=== PATIENT | male | born 1955 | race Caucasian/White ===

== ENCOUNTER → 2020-07-23 15:34 | Outpatient (CLI) | payer BC, SELFPAY ==
--- NOTE | ~2020-07-23 | XR_ITS ---
XR cervical spine 4-5V DATE: 07/23/2020 15:49 INDICATION: Cervical radiculopathy TECHNIQUE: AP, open-mouth, odontoid, lateral and swimmer views COMPARISON: None FINDINGS: C1 and C2 appear normally aligned and the odontoid process appears intact. There is mild loss of interspace height at C3-4. There is approximately 2 mm anterolisthesis at C5-6. There is moderate degenerative disc disease at C6-7. Otherwise no fracture or dislocation or locked facet or prevertebral soft tissue swelling. IMPRESSION: Mild to moderate cervical spondylosis 2 mm anterolisthesis at C5-6 Reviewed, dictated and finalized at location A.
== END ==
PROVIDERS: PCP Family Medicine; Visit Provider Physician Assistant
DX: M47.22 Other spondylosis with radiculopathy, cervical region (principal)
CPT/HCPCS: 72050

== ENCOUNTER 2023-12-14 18:00 | Emergency (ER) | payer BC, SELFPAY ==
--- NOTE | 2023-12-14 18:04 | ED.URI ---
HPI - URI/Sore Throat General Chief Complaint: Upper Respiratory Infection Stated Complaint: Congestion Time Seen by Provider: 12/14/23 18:09 Source: patient, RN notes reviewed and old records reviewed Mode of arrival: ambulatory Limitations: no limitations History of Present Illness HPI Narrative: 68-year-old male presents to the [facility] with approximately 1 week sore throat, postnasal drip,head congestion and runny nose. Related Data Allergies Allergy/AdvReac Type Severity Reaction Status Date / Time Penicillins Allergy Unknown Unknown Verified 12/14/23 18:05 Review of Systems Review of Systems: All systems reviewed & are unremarkable except as noted in HPI and below Constitutional: Constitutional: Reports no additional constitutional complaints Eyes: Eyes: Reports no additional eye complaints ENT: Reports as per HPI Cardiovascular: Cardiovascular: Reports no additional cardiovascular complaints, Denies chest pain and Denies dyspnea Respiratory: Respiratory: Reports no additional respiratory complaints, Denies chest congestion, Denies cough and Denies dyspnea Gastrointestinal: Gastrointestinal: Reports no additional gastrointestinal complaints, Denies abdominal pain, Denies nausea and Denies vomiting Musculoskeletal: Musculoskeletal: Reports no additional musculoskeletal complaints Integumentary/Breasts: Skin/Breast: Reports system reviewed and no additional complaints, except as docu Neurologic: Reports system reviewed and no additional complaints, except as documented Psychiatric: Psychiatric: Reports no additional psychiatric complaints Allergic/Immunologic: Allergic/Immunologic: Reports no additional allergic/immunologic complaints PMFSH Past Medical History Medical History Family history of prostate cancer Family History Family History Unknown Malignant neoplasm of prostate Social History Social History Smoking status: Never smoker Alcohol intake: current Substance use: never Comments At the time of my signature, I reviewed and agree with the nursing past medical, surgical, social, and family history. There is no relevant family history pertinent to the patient complaint. Exam Const: General: cooperative, healthy appearing, comfortable, no acute distress, well developed, alert and well nourished Nutritional Appearance: well nourished Orientation/consciousness: patient oriented x3 Limitations: no limitations HENMT: Head: normal to inspection Ears: hearing grossly normal bilaterally, external ears normal, TM's normal bilaterally, EAC's normal, mastoids normal and no periauricular adenopathy Face/Nose/Sinus: Normal external nose present, Normal nares present, Normal nasal mucous membranes and turbinates present, normal facial exam and face symmetric Face and sinus: normal facial exam and face symmetric Mouth: Yes Normal oral and palatal mucosa present, Yes lip normal and Yes tongue normal Throat: uvula midline, posterior oropharynx abnormal cobblestoning; no edema, no erythema, no exudates and no lacerations, postnasal drainage and no uvular edema Eyes: General: appearance normal, both eyes and all related structures Alignment and Position: alignment normal Periorbital: periorbital findings normal Pupils: Equal, round and reactive pupils present EOM: EOMs intact bilaterally Neck: Neck: normal visual inspection, full ROM, no lymphadenopathy and no meningeal signs Chest: Chest palpation & inspection: normal inspection of the chest Resp: Effort & Inspection: normal respiratory effort and able to speak in complete sentences Auscultation: clear to auscultation bilaterally, no crackles, no rales, no rhonchi and no wheezes Cardio: Rate: regular rate Rhythm: regular rhythm Skin: General skin exam: normal color and no rashes or
[2023-12-14 18:08] VITALS: BP 133/84; PULSE 80; RESP 16; TEMP 37; O2SAT 97
== END 2023-12-14 18:27 | disposition home or self-care (01) ==
PROVIDERS: Emergency Provider Nurse Practitioner; PCP Family Medicine
DX: J06.9 Acute upper respiratory infection, unspecified (principal); R09.82 Postnasal drip
CPT/HCPCS: 99213; G0463

== ENCOUNTER 2024-06-04 16:00 | Outpatient (CLI) | payer BC, SELFPAY ==
--- NOTE | ~2024-06-04 | XR_ITS ---
EXAM: XR_CERV2-3V_CR DATE: 06/04/2024 16:09 HISTORY: M54.2 - Cervicalgia . COMPARISON: 07/23/2020. FINDINGS: Craniocervical association and atlantoaxial joint are aligned. Moderate degenerative parada e at the atlantodental interval. No prevertebral soft tissue swelling. 2 mm retrolisthesis at C2-3 an d C6-7. 2 mm anterolisthesis at C4-5 and C5-6. Vertebral body heights are maintained. Normal disc spa geovanni. Mild disc space narrowing at C3-4. Moderate disc space narrowing and marginal osteophytosis at C 6-7. Multilevel moderate facet hypertrophy and sclerosis. IMPRESSION: Multilevel grade 1 listheses, detailed above. Multilevel cervical degenerative disc disea se, moderate at C6-7. Multilevel moderate cervical facet arthropathy. Reviewed, dictated and finalized at location K. CLERK IMPRESSION: Multilevel grade 1 listheses, detailed above. Multilevel cervical d egenerative disc disease, moderate at C6-7. Multilevel moderate cervical facet arthropathy.
== END 2024-06-04 16:01 | disposition home or self-care (01) ==
LOC: MICIMG 16:02
PROVIDERS: PCP Family Medicine; Visit Provider Student in an Organized Health Care Education/Training Program
DX: M43.12 Spondylolisthesis, cervical region (principal); M50.323 Other cervical disc degeneration at C6-C7 level; M47.892 Other spondylosis, cervical region
CPT/HCPCS: 72040

== ENCOUNTER 2024-09-17 01:27 | Day surgery (SDC) | payer BC, SELFPAY ==
[2024-09-05 15:24] VITALS: BMI 29.4
--- OUTSIDE RECORDS SUMMARY | 2024-09-17 01:29 | XMS_ITS | Clinical Summary ---
Author Organization [facility] Address [address] [place] [address] Care Team Providers Care Security Associate Name Role Phone Unavailable Primary Care Provider Unavailabl e Source Comments [facility],non-owned Affiliates and Associated Physician Practices is amultiple site organization consisting of ambulatory clinics and hospital sitesin [place], [place], [place] and [place]. This disclosure is being madepursuant to the Care Everywhere program and may not contain all information available regarding this patient. Last updated 17.[facility] Allergies Active Allergy Reactions Criticality Noted Date Comments Penicillins Other High 01/27/2020 unknown Encounters Date Type Department Care Team Description 06/18/2024 Telephone [facility] Pain Care [address] [place] [address] Pedro Bustillos MD Appointment from Last 3 Months Immunizations Immunization Administration Dates Next Due INFLUENZA VACCINE, HIGH-DOSE , QUADR. (FLUZONE HIGH-DOSE QUADRIVALENT; 65Y+), 0.7 ML (HD-IIV4) 01/27/2020 Social History Tobacco Use Types Packs/Day Years Used Date Smoking Tobacco: Never Assessed Sex and Gender Information Value Date Recorded Sex Assigned at Not on file Legal Sex Male 3:26 PM CDT Gender Identity Not on file Sexual Orientation Not on file Plan of Treatment Health Maintenance Due Date Last Done Comments COLOGUARD (AGES 45-75) - COL ON CA SCREENING 1955 COLON MONITORING 1955 COLONOSCOPY - COLON CA SCREENING 1955 CT COLONOGRAPHY - COLON CA SCREENING 1955 Colorectal Cancer Screening 1955 FIT - COLON CA SCREENING 1955 FLEX SIG - COLON CA SCREENING 1955 LIPID TESTING 1955 HEPATITIS C SCREENING 01/09/1973 DTAP/TDAP/TD VACCINES (1 - Tdap) 1974 PNEUMOCOCCAL VACCINE 50+ (1 of 1 - PCV) 2005 ZOSTER VACCINE (1 of 2) 2005 COVID-19 VACCINE (1 - 2023-2 5 season) 2023 DEPRESSION SCREENING 04/09/2024 INFLUENZA VACCINE (Season Ended) 2024 01/27/20 20 Respiratory Syncytial Virus (RSV) Vaccine Pt: or over 60 yrs (1 - 1-dose 75+ series) 2030 HEPATITIS B VACCINE Aged Out No longe r eligible based on patient's age to complete this topic HIB VACCINE Aged Out No longer eligi ble based on patient's age to complete this topic HPV VACCINE Aged Out No longer eligi ble based on patient's age to complete this topic MENINGOCOCCAL (Group B) VACC INE SHARED DECISION-MAKING Aged Out No longer eligibl e based on patient's age to complete this topic MENINGOCOCCAL GROUPS A/C/Y/W VACCINE Aged Out No longer eligible b ased on patient's age to complete this topic Insurance [place]
--- OUTSIDE RECORDS SUMMARY | 2024-09-17 01:29 | XMS_ITS | CONTINUITY OF CARE DOCUMENT ---
Author Name connerselvin chi Address Unknown Organization [facility] Address [address] [place] [address] Phone [phone] Care Team Providers Care Wood Last Maker Name Role Phone Vinny HOWARD, Mariel Unavailable INSURANCE PROVIDERS Payer name Policy type / Coverage type [place] red democrat ID [facility] [employer] insurance company [id number]
--- OUTSIDE RECORDS SUMMARY | 2024-09-17 01:29 | XMS_ITS | Clinical Summary ---
Author Organization [address] Address [address] [place] [id number] Care Team Providers Care Gear Design Engineer Name Role Phone Ariadne Strickland MD Primary Care Provider [phone] Allergies Active Allergy Reactions Criticality Noted Date Comments Penicillins Other (See comments) Low 05/10/2024 Unknown Medications benzonatate (TESSALON) 100 mg capsuleIndicati ons:Cough Take 1 capsule (100 mg total) by mouth 3 (three) times a day as needed for cough 42 capsule 05/10/2024 Active Active Problems No known active problems Social History Tobacco Use Types Packs/Day Years Used Date Smoking Tobacco: Never Assessed Sex and Gender Information Value Date Recorded Sex Assigned at Not on file Legal Sex Male 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 Gender Identity Not on file Sexual Orientation Not on file Last Filed Vital Signs Vital Sign Reading Time Taken Comments Blood Pressure 126/68 05/10/2024 3:23 PM FRAMING MILL SUPERVISOR Pulse 82 05/10/2024 3:23 PM FRAMING MILL SUPERVISOR Temperature 36.8 C (98.3 F) 05/10/2024 3:23 PM FRAMING MILL SUPERVISOR Respiratory Rate 20 05/10/2024 3:23 PM FRAMING MILL SUPERVISOR Oxygen Saturation 98% 05/10/2024 3:23 PM FRAMING MILL SUPERVISOR Inhaled Oxygen Concentration - - Weight 90.7 kg (200 lb) 05/10/2024 3:23 PM FRAMING MILL SUPERVISOR Height - - Body Mass Index - - Plan of Treatment Health Maintenance Due Date Last Done Comments Colon Cancer Screening-Colonoscopy 1955 Depression Screening 1955 Fall Risk Assessment 1955 Hepatitis C Screening 1955 Prostate Cancer Screening-PSA 1955 Hepatitis B Screening 1973 Pneumococcal vaccine 65+ (1 of 1 - PCV) 2005 Zoster Vaccine (2 of 3) 01/31/2016 12/06/2015 Abdominal Aortic Aneurysm (A AA) Screen 01/15/2020 Well Visit 65+ 01/15/2020 Covid-19 Vaccine (4 - 2023-2 5 season) 2023 03/17/2021, 06/11/2020, 05/14/2020 Influenza Vaccine (Season Ended) 2024 01/02/2022, 01/27/2020, 03/13/2016, Additional history exists DTaP/Tdap/Td Vaccine (2 - Td or Tdap) 09/12/2025 09/13/2015 Insurance [facility] CHOICE OOS Care Teams Gear Design Engineer Relationship Specialty Start Date End Date Ariadne Strickland MD [address] [place] [address] PCP - General Family Medicine 05/10/24
--- OUTSIDE RECORDS SUMMARY | 2024-09-17 01:29 | XMS_ITS | Referral Summary ---
Author Organization [address] Address [address] [place] [id number] Care Team Providers Care Old Testament Professor Name Role Phone Ariadne Strickland MD Primary Care Provider [phone] Allergies Active Allergy Reactions Criticality Noted Date [...] on file Legal Sex Male 10:50 AM WASTEWATER PLANT OPERATOR Gender Identity Not on file Sexual Orientation Not on file Last Filed Vital Signs Vital Sign Reading Time Taken Comments Blood Pressure 126/68 05/10/2024 3:23 PM WASTEWATER PLANT OPERATOR Pulse 82 05/10/2024 3:23 PM WASTEWATER PLANT OPERATOR Temperature 36.8 C (98.3 F) 05/10/2024 3:23 PM WASTEWATER PLANT OPERATOR Respiratory Rate 20 05/10/2024 3:23 PM WASTEWATER PLANT OPERATOR Oxygen Saturation 98% 05/10/2024 3:23 PM WASTEWATER PLANT OPERATOR Inhaled Oxygen Concentration - - Weight 90.7 kg (200 lb) 05/10/2024 3:23 PM WASTEWATER PLANT OPERATOR Height - - Body Mass Index - - Plan of Treatment Not on file Insurance [employer] CHO[employer] OOS Member Subscriber Plan / Payer (Ef fective 2023-Present) Name:Bebo Jaime Relation to Subscriber:Self Name:Bebo Jaime Payer ID:[id number] (NAIC) Type: ALLIANCE Address: [facility] [id number] [id number] Care Teams Old Testament Professor Relationship Specialty Start Date End Date Ariadne Strickland MD [address] [id number] PCP - General Family Medicine 05/10/24
[2024-09-17 09:09] VITALS: BP 128/73; PULSE 80; RESP 16; TEMP 36.7; O2SAT 96; BMI 30.3
--- NOTE | 2024-09-17 09:15 | WPDANESEPPF ---
Anes - Initial Pre Proc Eval Procedure: Operation Date: 09/17/24 10:30 Proposed Procedures p Screening Colonoscopy - Praveen Barone MD Date/Time: 09/17/24 09:15 Surgeon: Praveen Barone MD Pre Op Diagnosis: Encounter for screening for malignant neoplasm of Patient Data Age: 69 Gender: M Height: 1.78 m Weight: 95.8 kg Last Vital Signs Temp 36.7 C 09/17/24 09:09 Pulse 80 09/17/24 09:09 Resp 16 09/17/24 09:09 BP 128/73 09/17/24 09:09 Pulse Ox 96 09/17/24 09:09 O2 Del Method Room Air 09/17/24 09:09 Allergies Allergy/AdvReac Type Severity Reaction Status Date / Time Penicillins Allergy Unknown Unknown Verified 09/17/24 09:07 Home Medications ?Medication ?Instructions ?Recorded ?Confirmed ?Type No Home Medications 09/05/24 09/05/24 History Patient hx anesthesia problems: none Family hx anesthesia problems: none Results Review: All pre-operative results and documents have been reviewed as part of the pre-operative evaluation. [facility] Past Medical History Medical History Family history of prostate cancer Family History Family History Unknown Malignant neoplasm of prostate Social History Social History Smoking status: Never smoker Alcohol intake: current Drinks per week: 2 Substance use: never Substance use type: does not use Living arrangements: with family Spiritual care concerns: No Anes - Eval Final PreProcedure Day of Procedure 09/17/24 09:15 Patient weight: overweight Heart: regular rate and rhythm Lungs: clear to auscultation Airway: Mallampati scale class II Neurological: alert and oriented Last oral intake: >/= 8 hours ASA classification: II Emergent: no Anesthetic plan: proceed Anesthesia type and monitoring: general GIVS and standard monitoring Results Review: All pre-operative results and documents have been reviewed as part of the pre-operative evaluation. Informed Consent: The patient's anesthetic plan and its attendant risks and benefits were discussed with the patient/family/POA. Questions were solicited and answers provided to the satisfaction of the patient/family/POA.
[2024-09-17] MEDS: LACTATED RINGERS 1,000 ML 150 ML IV CONT (09:18)
--- NOTE | 2024-09-17 10:24 | PM.IMHP ---
H&P: HPI History of Present Illness Date/Time: 09/17/24 10:24 Chief Complaint: Screening colonoscopy Narrative: This is the patient's 2nd colonoscopy. There are no GI symptoms and there is no family history of colorectal cancer. Review of Systems Review of Systems: All systems reviewed & are unremarkable except as noted in HPI and below PMFSH Past Medical History Medical History Family history of prostate cancer Family History Family History Unknown Malignant neoplasm of prostate Social History Social History Smoking status: Never smoker Alcohol intake: current Drinks per week: 2 Substance use: never Substance use type: does not use Living arrangements: with family Spiritual care concerns: No Meds Home Medications and Allergies Home Medications ?Medication ?Instructions ?Recorded ?Confirmed ?Type No Home Medications 09/05/24 09/05/24 History Allergies Allergy/AdvReac Type Severity Reaction Status Date / Time Penicillins Allergy Unknown Unknown Verified 09/17/24 09:07 Vital Signs Vital Signs - 24 hr 09/17/24 09:09 Temperature 98.1 F Pulse Rate 80 Respiratory Rate 16 Blood Pressure 128/73 Pulse Oximetry 96 Oxygen Delivery Room Air Exam Const: General: cooperative and healthy appearing Resp: Effort & Inspection: normal respiratory effort and able to speak in complete sentences Auscultation: clear to auscultation bilaterally Cardio: Rate: regular rate Rhythm: regular rhythm GI: Inspection: normal to inspection GI Palp: No No hepatosplenomegaly present Auscultation: normal bowel sounds Rectal Exam: deferred Skin: General skin exam: normal color Psych: Appearance: grossly normal Mental Status: mental status grossly normal Assessment and Plan Assessment and plan (1) Encounter for screening colonoscopy: Code(s): Z12.11 - Encounter for screening for malignant neoplasm of colon Status: Acute Assessment and Plan: The patient is deemed a good candidate for the procedure. Consent signed. Will proceed.
[2024-09-17] MEDS: SIMETHICONE ORAL SUSPENSION 20 MG/0.3 ML 30 ML BOTTLE 0.6 ML IRRIGATION (10:36)
[2024-09-17 10:46] VITALS: BP 140/118; PULSE 74; RESP 21; O2SAT 95
[2024-09-17 10:56] VITALS: BP 112/68; PULSE 74; RESP 19; O2SAT 96
[2024-09-17 11:06] VITALS: BP 118/72; PULSE 68; RESP 18; O2SAT 98
--- NOTE | 2024-09-17 11:11 | SUR.PHASEII ---
Educated patient regarding the rest of his day following anesthesia. Explained to patient that he should go home and take it easy, not make any important decisions, drive, drink alcohol, or operate any machinery. Patient states oh I have stuff to do today. 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 Educated patient that he should not be handling electrical after having anesthesia today. Patient states it'll be alright.
== END 2024-09-17 11:21 | disposition home or self-care (01) ==
PROVIDERS: PCP Family Medicine; Referring Provider Student in an Organized Health Care Education/Training Program; Visit Provider Internal Medicine Gastroenterology
PROC: 0DJD8ZZ Inspection of Lower Intestinal Tract, Via Natural or Artificial Opening Endoscopic (ICD-10-PCS; CPT 45378; principal; 2024-09-17 10:30)
DX: Z12.11 Encounter for screening for malignant neoplasm of colon (principal); K57.30 Diverticulosis of large intestine without perforation or abscess without bleeding
CPT/HCPCS: 45378; J2003; J2704; J7120

== ENCOUNTER 2024-12-31 15:42 | Outpatient (CLI) | payer BC, SELFPAY ==
--- NOTE | ~2024-12-31 | XR_ITS ---
EXAMINATION: XR foot RT 2V, 12/31/2024 15:45 CDT HISTORY: RT CALCANEUS FOOT PAIN x2 MONTHS COMPARISON: No comparisons available. Findings: No acute fracture or malalignment. Small calcaneal spur Soft tissues unremarkable. Impression: No acute fracture or malalignment. Reviewed, dictated and finalized at location A. Impression: No acute fracture or malalignment.
== END 2024-12-31 15:43 | disposition home or self-care (01) ==
LOC: MICIMG 15:43
PROVIDERS: PCP Family Medicine; Visit Provider Family Medicine
DX: M77.31 Calcaneal spur, right foot (principal)
CPT/HCPCS: 73620